=== PATIENT | male | born 1950 | race Caucasian/White ===

== ENCOUNTER → 2022-05-14 14:51 | Outpatient (CLI) | payer MEDICARE, SELFPAY ==
[2022-05-14 17:13] LABS: Hemoglobin A1C% w Est Avg Glu 6.3 % (4.0-6.0)
== END ==
DX: E11.9 Type 2 diabetes mellitus without complications (principal); E16.2 Hypoglycemia, unspecified; Z68.30 Body mass index [BMI] 30.0-30.9, adult
CPT/HCPCS: 36415; 83036

== ENCOUNTER → 2023-06-20 16:00 | Outpatient (CLI) | payer MEDICARE, SELFPAY ==
[2023-06-20 17:12] LABS: Add Manual Diff / Slide Review NO; Basophils Absolute Auto 0 /uL (0-100); Basophils Percent Auto 0.9 % (0-2); Eosinophils Absolute Auto 300 /uL (0-450); Eosinophils Percent Auto 5.1 % (2-4); Hematocrit 39.7 % (41-53); Hemoglobin 13.8 g/dL (13.5-17.5); Lymphocytes Absolute Auto 1500 /uL (1100-4500); Lymphocytes Percent Auto 28.7 % (25-40); Mean Corpuscular HGB Conc 34.8 % (30-36); Mean Corpuscular Hemoglobin 34.7 PG (26-34); Mean Corpuscular Volume 99.9 fL (80-100); Monocytes Absolute Auto 300 /uL (0-900); Monocytes Percent Auto 5.6 % (3-14); Neutrophils Absolute Auto 3000 /uL (1500-7000); Neutrophils Percent Auto 59.7 % (50-75); Platelet Count 109 X10^3/uL (150-400); Red Blood Cell Count 3.98 X10^6/uL (4.5-5.9); Red Cell Distribution Width 14.2 % (11.6-14.8); White Blood Cell Count 5.1 X10^3/uL (4.5-11.0)
[2023-06-20 17:43] LABS: Alanine Aminotransferase 18 IU/L (<50); Albumin 4.1 g/dL (3.5-5.0); Albumin Globulin Ratio 1.5 (1.0-2.8); Alkaline Phosphatase 56 U/L (38-126); Aspartate Aminotransferase 24 IU/L (17-59); BUN Creatinine Ratio 20.2 (6-22); Bilirubin Total 2.1 mg/dL (0.2-1.3); Blood Urea Nitrogen 22 mg/dL (9-20); Calcium 9.1 mg/dL (8.4-10.2); Carbon Dioxide 27 mmol/L (22-32); Chloride 106 mmol/L (98-107); Estimated Glomerular Filt Rate > 60 mL/min (>60); Globulin 2.7 g/dL (1.7-4.1); Glucose 114 mg/dL (80-110); HEMOLYSIS < 15 (0-50); Potassium 4.6 mmol/L (3.4-5.1); Sodium 139 mmol/L (137-145); Total Protein 6.8 g/dL (6.3-8.2)
== END ==
PROVIDERS: Referring Provider Nurse Practitioner Family; Visit Provider Nurse Practitioner Family
DX: H81.10 Benign paroxysmal vertigo, unspecified ear (principal); E83.119 Hemochromatosis, unspecified
CPT/HCPCS: 36415; 80053; 85025

== ENCOUNTER → 2024-03-09 11:19 | Outpatient (CLI) | payer MEDICARE, SELFPAY ==
--- NOTE | 2024-03-09 11:23 | DI.RAD.S_ITS ---
PROCEDURE: XR ANKLE LT MIN 3V INDICATIONS: ANKLE PAIN TECHNIQUE: 3 views of the ankle were acquired. COMPARISON: None. FINDINGS: Bones: No fractures or dislocations. Mild midfoot and hindfoot joint osteoarthritic changes are seen. Ankle mortise is normally aligned. No suspicious bony lesions. Soft tissues: No tibiotalar joint effusion. Achilles tendon appears normal. IMPRESSION: No acute ankle fracture or dislocation. Mild midfoot and hindfoot joint osteoarthritis. No significant joint effusion or gross soft tissue abnormalities. Dictated by: Williams Logan M.D. on 03/09/2024 at 14:18 Approved by: Williams Logan M.D. on 03/09/2024 at 14:22
== END ==
PROVIDERS: Referring Provider Nurse Practitioner Family; Visit Provider Nurse Practitioner Family
DX: M19.072 Primary osteoarthritis, left ankle and foot (principal); M25.572 Pain in left ankle and joints of left foot; M79.662 Pain in left lower leg
CPT/HCPCS: 73610

== ENCOUNTER → 2025-06-01 11:51 | Outpatient (CLI) | payer MEDICARE, SELFPAY ==
--- NOTE | 2025-06-01 11:59 | DI.RAD.S_ITS ---
PROCEDURE: XR FOOT LT MIN 3V INDICATIONS: Displaced fracture of distal phalanx of left lesser toe(s), TECHNIQUE: 3 views of the foot were acquired. COMPARISON: None. FINDINGS: Bones: Transverse fractures of the 1st distal phalanx is minimally displaced. Subtotal osseous union Mild hammertoe deformities 1st through 5th digits. 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 Soft tissues: No soft tissue abnormality. IMPRESSION: Minimally displaced transverse fracture of the 1st distal phalanx showing subtotal osseous union Dictated by: Enrique Rosenthal M.D. on 06/02/2025 at 11:41 Approved by: Enrique Rosenthal M.D. on 06/02/2025 at 11:43
== END ==
LOC: RAD 11:57
DX: S92.532A Displaced fracture of distal phalanx of left lesser toe(s), initial encounter for closed fracture (principal); X58.XXXA Exposure to other specified factors, initial encounter
CPT/HCPCS: 73630